=== PATIENT | female | born 1950 | race Caucasian/White ===

== ENCOUNTER 2021-07-05 13:10 | Outpatient (CLI) | payer MEDICARE | END 2021-07-05 13:11 | disposition home or self-care (01) | LOC: CSHMAMMO 13:10 | PROVIDERS: ATTEND Internal Medicine | DX: R92.8 Other abnormal and inconclusive findings on diagnostic imaging of breast (principal) | CPT/HCPCS: 77065; G0279 ==

== ENCOUNTER 2022-12-19 12:19 | Outpatient (CLI) | payer MEDICARE | END 2022-12-19 12:20 | disposition home or self-care (01) | LOC: CSHRAD 12:19 | PROVIDERS: ATTEND Internal Medicine | DX: J40 Bronchitis, not specified as acute or chronic (principal) | CPT/HCPCS: 71046 ==

== ENCOUNTER 2023-04-11 00:36 | Inpatient (IN) | payer MEDICARE ==
[2023-04-11] MEDS ORDERED: Nitroglycerin 0.4 MG TAB (25 Tab Bottle) SL PRN (03:08)
[2023-04-11] MEDS ORDERED: Dicyclomine 10 MG CAP PO PRN (03:20)
[2023-04-11 03:42] VITALS: BMI 26.9
[2023-04-11 03:51] LABS: PTT 32.5 sec (22.0-33.0); Prothrombin Time 10.4 sec (9.5-12.1)
[2023-04-11 03:55] LABS: #Basophils 0.1 10x3/uL (0.0-0.2); #Eosinphils 0.4 10x3/uL (0.0-0.5); #Monocytes 0.6 10x3/uL (0.0-1.1); #Neutrophils 2.6 10x3/uL (1.5-8.4); %Basophils 0.7 % (0.0-2.0); %Eosinophils 5.1 % (0.0-6.0); %Lymphocytes 47.4 % (18.0-47.0); %Monocytes 8.6 % (0.0-10.0); %Neutrophils 37.9 % (40.0-75.0); Hematocrit 39.2 % (34.9-44.5); Hemoglobin 13.4 g/dL (12.0-15.5); Mean Corpuscular HGB CONC 34.2 g/dL (32.0-36.0); Mean Corpuscular Hemoglobin 32.2 pg (27.0-33.0); Mean Corpuscular Volume 94.2 fl (81.6-98.3); Mean Platelet Volume 9.7 fl (7.4-10.4); Platelet Count 325 10x3/uL (150-450); RBC Distribution Width 11.9 % (11.5-14.5); Red Blood Cell (RBC) Count 4.16 10x6/uL (3.90-5.03); White Blood Cell (WBC) Count 6.9 10x3/uL (3.5-10.5)
[2023-04-11] MEDS: Nitroglycerin 2% Ointment 1 INCH/1 GM Packet TOP SCH ×3 (04:07→23:01)
[2023-04-11 04:14] LABS: Anion Gap 13 mmol/L (10-20); BUN (Urea Nitrogen) 16 mg/dL (9.8-20.1); Calc. Creatinine Clearance 72 mL/min (70-130); Calcium 8.8 mg/dL (7.8-10.44); Carbon Dioxide 27 mmol/L (23-31); Cardiac Risk 3.4 (Less than 4.5); Chloride 102 mmol/L (98-107); Cholesterol 169 mg/dl (< 200 Desired); Estimated GFR 87; Glucose 121 mg/dL (83-110); HDL Cholesterol 50 mg/dL (>60 Neg Risk); LDL Cholesterol, Calculated 89 mg/dL; Magnesium 1.8 mg/dL (1.6-2.6); Potassium 3.3 mmol/L (3.5-5.1); Sodium 139 mmol/L (136-145); Triglycerides 148 mg/dL (Less than 150); Troponin I Less than 0.010 ng/mL (< 0.028)
[2023-04-11] MEDS: Acetaminophen 325 MG TAB PO PRN ×3 (04:18→23:35)
[2023-04-11] MEDS ORDERED: Potassium Chloride 20 MEQ TAB PO SCH (05:00)
[2023-04-11 06:54] LABS: Troponin I Less than 0.010 ng/mL (< 0.028)
[2023-04-11] MEDS: Triamterene/Hydrochlorothiazide 37.5 mg/25 mg Tablet PO SCH (09:06)
[2023-04-11] MEDS: Lisinopril 20 MG TAB PO SCH (09:23)
[2023-04-11] MEDS: Aspirin Chewable 81 MG TAB PO SCH (09:24)
[2023-04-11 13:04] LABS: Hemoglobin A1c 6.3 % (4.0-6.0)
[2023-04-11] MEDS ORDERED: Amitriptyline HCl 10 MG TAB PO SCH (21:00)
[2023-04-11] MEDS ORDERED: Amlodipine 5 MG TAB PO SCH (22:30)
[2023-04-11] MEDS: Atorvastatin Calcium 40 MG TAB PO SCH (23:01)
[2023-04-12] MEDS: Nitroglycerin 2% Ointment 1 INCH/1 GM Packet TOP SCH (04:00)
[2023-04-12] MEDS ORDERED: NIFEdipine XL 30 MG TAB PO SCH (09:00)
[2023-04-12] MEDS: Aspirin Chewable 81 MG TAB PO SCH (09:28)
[2023-04-12] MEDS: Metoprolol Tartrate 25 MG TAB PO SCH ×2 (09:28→20:38)
[2023-04-12] MEDS: Triamterene/Hydrochlorothiazide 37.5 mg/25 mg Tablet PO SCH (09:33)
[2023-04-12] MEDS: Lisinopril 20 MG TAB PO SCH ×2 (09:35→20:38)
[2023-04-12] MEDS ORDERED: Potassium Chloride 20 MEQ TAB PO SCH (10:30)
[2023-04-12] MEDS ORDERED: Amlodipine 5 MG TAB PO SCH (10:30)
[2023-04-12 11:24] LABS: Magnesium 1.7 mg/dL (1.6-2.6)
[2023-04-12] MEDS: Amlodipine 5 MG TAB PO SCH (12:14)
[2023-04-12] MEDS ORDERED: Magnesium 2 GM/50 ML(in water) 2 GM in Premix Bag 1 BAG IVPB SCH (14:00)
[2023-04-12] MEDS: Atorvastatin Calcium 40 MG TAB PO SCH (20:38)
[2023-04-12] MEDS: Acetaminophen 325 MG TAB PO PRN (20:44)
[2023-04-13 05:14] LABS: Anion Gap 13 mmol/L (10-20); BUN (Urea Nitrogen) 16 mg/dL (9.8-20.1); Calc. Creatinine Clearance 73 mL/min (70-130); Calcium 8.9 mg/dL (7.8-10.44); Carbon Dioxide 28 mmol/L (23-31); Chloride 103 mmol/L (98-107); Estimated GFR 88; Glucose 144 mg/dL (83-110); Sodium 140 mmol/L (136-145)
[2023-04-13] MEDS: Metoprolol Tartrate 25 MG TAB PO SCH (08:35)
[2023-04-13] MEDS: Amlodipine 5 MG TAB PO SCH (08:35)
[2023-04-13] MEDS: Aspirin Chewable 81 MG TAB PO SCH (08:35)
[2023-04-13] MEDS: Lisinopril 20 MG TAB PO SCH (08:35)
[2023-04-13] MEDS: Triamterene/Hydrochlorothiazide 37.5 mg/25 mg Tablet PO SCH (10:55)
[2023-04-13 15:56] VITALS: BP 141/65; TEMP 98.2
[2023-04-13 16:52] LABS: Free T4 (Free Thyroxine) 0.95 ng/dL (0.70-1.48)
== END 2023-04-13 18:07 | disposition home or self-care (01) | DRG 311 ==
LOC: INTOOBSV 01:56 → CSHTELE 01:56 → OBSVTOIN 04-12 12:32
PROVIDERS: ADMIT Family Medicine; ATTEND Internal Medicine
DX: I24.9 Acute ischemic heart disease, unspecified (principal); I10 Essential (primary) hypertension; E78.2 Mixed hyperlipidemia; E74.39 Other disorders of intestinal carbohydrate absorption; F17.210 Nicotine dependence, cigarettes, uncomplicated; Z79.899 Other long term (current) drug therapy; Z79.82 Long term (current) use of aspirin; Z88.8 Allergy status to other drugs, medicaments and biological substances; Z98.49 Cataract extraction status, unspecified eye; Z90.710 Acquired absence of both cervix and uterus; Z85.3 Personal history of malignant neoplasm of breast; Z82.49 Family history of ischemic heart disease and other diseases of the circulatory system; Z83.3 Family history of diabetes mellitus; E87.6 Hypokalemia
CPT/HCPCS: 36415; 80048; 80061; 83036; 83735; 84439; 84443; 84481; 84484; 85025; 85610; 85730; 93005; 93010; 93306; J1650; J3475

== ENCOUNTER 2025-06-18 10:02 | Outpatient (CLI) | payer MEDICARE ==
[2025-06-18 11:22] LABS: Estimated GFR - POC 67.0
== END 2025-06-18 10:03 | disposition home or self-care (01) ==
LOC: CSHCT 10:02 → CSHMAMMO 10:03
PROVIDERS: ATTEND Family Medicine
DX: Z12.31 Encounter for screening mammogram for malignant neoplasm of breast (principal); K57.92 Diverticulitis of intestine, part unspecified, without perforation or abscess without bleeding; Z80.3 Family history of malignant neoplasm of breast; Z85.3 Personal history of malignant neoplasm of breast; N64.89 Other specified disorders of breast; K57.30 Diverticulosis of large intestine without perforation or abscess without bleeding
CPT/HCPCS: 36415; 74177; 77063; 77067; 82565